=== PATIENT | female | born 1980 | race Two or more races ===

== ENCOUNTER 2019-02-20 20:06 | Emergency (ER) | payer MEDICAID ==
[~2019-02-20] VITALS: Ht 160 cm; Wt 60.3 kg
[2019-02-20 20:58] LABS: Urine Bacteria NONE SEEN /hpf (None Seen); Urine Blood 3+ /uL (Negative); Urine Mucus FEW (None Seen); Urine Specific Gravity 1.004 (1.001-1.035); Urine WBC 1 /hpf (0 - 5)
[2019-02-20 21:48] LABS: Basophils # (auto) 0 uL; Basophils % (auto) 0.8 % (0.0-2.0); Eosinophils # (auto) 0.1 uL; Eosinophils % (auto) 1.4 % (0.0-7.0); Hematocrit 39.2 % (36.0-46.0); Hemoglobin 13.1 g/dL (12.2-16.2); Lymphocytes # (auto) 1.5 uL; Lymphocytes % (auto) 25.6 % (10.0-50.0); Mean Corpuscular Hgb Conc. 33.5 g/dL (32.0-36.0); Mean Corpuscular Volume 95.5 fL (80.0-100.0); Monocytes # (auto) 0.4 uL; Monocytes % (auto) 6.3 % (0.0-12.0); Neutrophils # (auto) 3.7 uL; Neutrophils % (auto) 65.9 % (37.0-80.0); Nucleated Red Blood Cells % 0.1 %; Platelet Count (auto) 217 10^3/uL (140-450); Red Blood Cells 4.11 10^6/uL (4.0-5.20); Red Cell Distribution Width 12.5 % (11.8-14.3); White Blood Cell 5.7 10^3/uL (4.4-10.8)
[2019-02-20 22:04] LABS: Partial Thromboplastin Time 28.3 sec (23.78-33.04); Prothrombin Time 10.7 sec (9.27-12.13)
[2019-02-20 22:08] LABS: Albumin 4.3 g/dL (3.4-5.0); Calcium 9.1 mg/dL (8.5-10.1); Potassium 3.6 mmol/L (3.5-5.1)
[2019-02-20 22:10] LABS: BUN/Creatinine Ratio 16.3
[2019-02-20 22:28] LABS: Bilirubin, Total 0.6 mg/dL (0.2-1.0); Total Protein 8.2 g/dL (6.4-8.2)
[2019-02-21 03:17] VITALS: BP 139/82
== END 2019-02-21 03:15 | disposition home or self-care (01) ==
LOC: ER 20:09
DX: N85.00 Endometrial hyperplasia, unspecified (principal); R42 Dizziness and giddiness; Z86.39 Personal history of other endocrine, nutritional and metabolic disease
CPT/HCPCS: 36415; 76830; 76856; 80053; 81001; 84702; 85025; 85610; 85730; 86850; 86900; 86901

== ENCOUNTER 2019-02-22 23:43 | Emergency (ER) | payer MEDICAID ==
[~2019-02-22] VITALS: Ht 160 cm; Wt 59.0 kg
[2019-02-23 00:47] VITALS: BP 167/93
[2019-02-23 00:57] LABS: Basophils # (auto) 0 uL; Basophils % (auto) 0.6 % (0.0-2.0); Eosinophils # (auto) 0.1 uL; Eosinophils % (auto) 0.9 % (0.0-7.0); Hematocrit 37.2 % (36.0-46.0); Hemoglobin 12.5 g/dL (12.2-16.2); Lymphocytes # (auto) 1.6 uL; Lymphocytes % (auto) 24.1 % (10.0-50.0); Mean Corpuscular Hgb Conc. 33.6 g/dL (32.0-36.0); Mean Corpuscular Volume 95.1 fL (80.0-100.0); Monocytes # (auto) 0.5 uL; Monocytes % (auto) 6.8 % (0.0-12.0); Neutrophils # (auto) 4.6 uL; Neutrophils % (auto) 67.6 % (37.0-80.0); Nucleated Red Blood Cells % 0.1 %; Platelet Count (auto) 207 10^3/uL (140-450); Red Blood Cells 3.91 10^6/uL (4.0-5.20); Red Cell Distribution Width 12.7 % (11.8-14.3); White Blood Cell 6.8 10^3/uL (4.4-10.8)
[2019-02-23 01:13] LABS: Albumin 4.4 g/dL (3.4-5.0); BUN/Creatinine Ratio 12.2; Calcium 8.9 mg/dL (8.5-10.1); Potassium 3.5 mmol/L (3.5-5.1)
[2019-02-23 01:15] LABS: Bilirubin, Total 0.4 mg/dL (0.2-1.0); Total Protein 7.9 g/dL (6.4-8.2)
== END 2019-02-23 01:27 | disposition home or self-care (01) ==
LOC: ER 23:43
DX: N93.9 Abnormal uterine and vaginal bleeding, unspecified (principal); E07.9 Disorder of thyroid, unspecified; Z90.49 Acquired absence of other specified parts of digestive tract
CPT/HCPCS: 36415; 80053; 85025